=== PATIENT | male | born 1950 | race Caucasian/White ===

== ENCOUNTER → 2021-09-30 | Outpatient (CLI) | payer MEDICARE, OTHER ==
[~2021-09-30] VITALS: Ht 175.3 cm; Wt 88.5 kg
== END ==
LOC: OPSV 07:00
DX: D46.9 Myelodysplastic syndrome, unspecified (principal)
CPT/HCPCS: 36430; J7050; P9016

== ENCOUNTER 2021-10-25 09:47 | Inpatient (IN) | payer MEDICARE, OTHER ==
[~2021-10-25] VITALS: Ht 175.3 cm; Wt 89.4 kg
[2021-10-25 11:06] LABS: HEMOGLOBIN 9.1 gm/dl (14.0-17.5); RED BLOOD COUNT 3.44 M/UL (4.20-5.50); WHITE BLOOD COUNT 6.2 K/UL (4.5-11.0)
[2021-10-25 11:31] LABS: BUN/CREATININE RATIO 18 (0-10)
[2021-10-25] MEDS ORDERED: AUGMENTIN 875-1 EACH PO (14:41)
[2021-10-25] MEDS ORDERED: VIBRAMYCIN100 MG PO (14:41)
[2021-10-26 03:43] LABS: HEMOGLOBIN 8.2 gm/dl (14.0-17.5)
[2021-10-26 03:45] LABS: RED BLOOD COUNT 3.05 M/UL (4.20-5.50)
[2021-10-26 04:49] LABS: BUN/CREATININE RATIO 16 (0-10)
[2021-10-26] MEDS ORDERED: BUPRENORPHIN-N1 EACH SL (12:56)
[2021-10-26] MEDS ORDERED: NEURONTIN300 MG PO (12:57)
[2021-10-26] MEDS ORDERED: OMEPRAZOLE20 M1 PO (14:11)
[2021-10-26] MEDS ORDERED: AUGMENTIN 875-1 EACH PO (15:31)
[2021-10-26] MEDS ORDERED: FERROUS SULFAT325 MG PO (15:37)
== END 2021-10-26 17:00 | disposition home or self-care (01) | DRG 194 ==
LOC: ER1 09:47 → CDU 15:29 → 3 EAST 10-26 11:41
PROVIDERS: Emergency Medicine; ADMIT Internal Medicine
DX: J18.9 Pneumonia, unspecified organism (principal); F11.20 Opioid dependence, uncomplicated; C92.10 Chronic myeloid leukemia, BCR/ABL-positive, not having achieved remission; Z20.822 Contact with and (suspected) exposure to COVID-19; D63.0 Anemia in neoplastic disease; D70.8 Other neutropenia; Z80.42 Family history of malignant neoplasm of prostate; Z80.49 Family history of malignant neoplasm of other genital organs; Z79.899 Other long term (current) drug therapy
CPT/HCPCS: 0240U; 71045; 80053; 82550; 82553; 83540; 83550; 83735; 83874; 83880; 84100; 84484; 85025; 86140; 93005; 94640; 94664; 94760; 96374; 96375; 96376; 99285; C9113; G0378; J0692; J1450; J1650; J3370; J7030; J7070; Q9967

== ENCOUNTER → 2021-11-05 | Outpatient (CLI) | payer MEDICARE, OTHER ==
[~2021-11-05] MED LIST: AUGMENTIN 875-1 EACH PO; BUPRENORPHIN-N1 EACH SL; FERROUS SULFAT325 MG PO; NEURONTIN300 MG PO; OMEPRAZOLE20 M1 PO; VIBRAMYCIN100 MG PO
[2021-11-06 07:27] LABS: HEMOGLOBIN 7.5 gm/dl (14.0-17.5)
== END ==
LOC: LAB 17:06
PROVIDERS: Internal Medicine Hematology & Oncology
DX: D64.9 Anemia, unspecified (principal)
CPT/HCPCS: 36415; 85014; 85018; 86850; 86900; 86901; 86920

== ENCOUNTER → 2021-11-06 | Outpatient (CLI) | payer MEDICARE, OTHER | LOC: OPSV 08:58 | DX: D46.9 Myelodysplastic syndrome, unspecified (principal) | CPT/HCPCS: 36430; P9016 ==

== ENCOUNTER → 2022-01-05 | Outpatient (CLI) | payer MEDICARE, OTHER ==
[~2022-01-05] VITALS: Ht 175.3 cm; Wt 79.8 kg
[~2022-01-05] MED LIST changes: +ACYCLOVIR400 MG PO; +AUGMENTIN 500-500 MG PO; +DIFLUCAN200 MG PO; +LEVOFLOXACIN500 MG PO
== END ==
LOC: OPSV 09:00
DX: D46.9 Myelodysplastic syndrome, unspecified (principal); R53.83 Other fatigue; R06.02 Shortness of breath
CPT/HCPCS: 36430; P9016

== ENCOUNTER 2022-01-23 10:52 | Inpatient (IN) | payer MEDICARE, OTHER ==
[~2022-01-23] VITALS: Ht 175.3 cm; Wt 78.0 kg
[2022-01-23 12:16] LABS: HEMOGLOBIN 7.8 gm/dl (14.0-17.5); RED BLOOD COUNT 2.84 M/UL (4.20-5.50); WHITE BLOOD COUNT 1.7 K/UL (4.5-11.0)
[2022-01-23 12:37] LABS: BUN/CREATININE RATIO 19 (0-10)
[2022-01-23] MEDS ORDERED: GABAPENTIN800 MG PO (16:19)
[2022-01-23] MEDS ORDERED: ONDANSETRON HCL8 MG PO (16:19)
[2022-01-23] MEDS ORDERED: AZACITIDINE100 MG SC (16:24)
[2022-01-24 03:24] LABS: HEMOGLOBIN 7.1 gm/dl (14.0-17.5); RED BLOOD COUNT 2.58 M/UL (4.20-5.50)
[2022-01-24 03:33] LABS: BUN/CREATININE RATIO 18 (0-10)
[2022-01-24 03:46] LABS: WHITE BLOOD COUNT 1.4 K/UL (4.5-11.0)
[2022-01-25 04:17] LABS: HEMOGLOBIN 7.4 gm/dl (14.0-17.5); RED BLOOD COUNT 2.67 M/UL (4.20-5.50)
[2022-01-25 04:33] LABS: WHITE BLOOD COUNT 1.8 K/UL (4.5-11.0)
[2022-01-25 04:52] LABS: BUN/CREATININE RATIO 16 (0-10)
[2022-01-26 06:54] LABS: RED BLOOD COUNT 2.52 M/UL (4.20-5.50)
[2022-01-26 07:12] LABS: BUN/CREATININE RATIO 24 (0-10)
[2022-01-26 07:34] LABS: HEMOGLOBIN 6.9 gm/dl (14.0-17.5)
--- NOTE | 2022-01-26 08:43 | NUR ---
0879- ATTEMPTED TO CALL DR ROA TO NOTIFY HIM OF CRITICAL LABS. NO ANSWER. WILL CONTINUE TO CALL.
--- NOTE | 2022-01-26 13:40 | NUR ---
1340- NOTIFIED DR. ZALDIVAR THAT PATIENTS BLOOD WILL NOT BE READY UNTIL IN THE MORNING.
[2022-01-27 04:49] LABS: RED BLOOD COUNT 2.34 M/UL (4.20-5.50)
[2022-01-27 05:29] LABS: BUN/CREATININE RATIO 25 (0-10)
[2022-01-27 05:42] LABS: HEMOGLOBIN 6.1 gm/dl (14.0-17.5); WHITE BLOOD COUNT 1.5 K/UL (4.5-11.0)
[2022-01-27 16:06] LABS: WHITE BLOOD COUNT 1.5 K/UL (4.5-11.0)
[2022-01-28 06:56] LABS: BUN/CREATININE RATIO 26 (0-10)
[2022-01-28 07:09] LABS: HEMOGLOBIN 7.3 gm/dl (14.0-17.5)
[2022-01-28 07:11] LABS: RED BLOOD COUNT 2.74 M/UL (4.20-5.50); WHITE BLOOD COUNT 1.2 K/UL (4.5-11.0)
[2022-01-29 06:23] LABS: HEMOGLOBIN 8.7 gm/dl (14.0-17.5)
[2022-01-29 06:30] LABS: RED BLOOD COUNT 3.12 M/UL (4.20-5.50)
[2022-01-29 06:50] LABS: BUN/CREATININE RATIO 28 (0-10)
[2022-01-30 05:47] LABS: HEMOGLOBIN 8.2 gm/dl (14.0-17.5); RED BLOOD COUNT 2.92 M/UL (4.20-5.50)
[2022-01-30 06:12] LABS: BUN/CREATININE RATIO 30 (0-10)
[2022-01-31 02:33] LABS: RED BLOOD COUNT 2.85 M/UL (4.20-5.50)
[2022-01-31 02:44] LABS: WHITE BLOOD COUNT 1.3 K/UL (4.5-11.0)
[2022-01-31 02:57] LABS: BUN/CREATININE RATIO 26 (0-10)
[2022-02-01 03:26] LABS: HEMOGLOBIN 8.6 gm/dl (14.0-17.5); RED BLOOD COUNT 3.1 M/UL (4.20-5.50)
[2022-02-01 03:29] LABS: WHITE BLOOD COUNT 1.5 K/UL (4.5-11.0)
[2022-02-01 03:49] LABS: BUN/CREATININE RATIO 27 (0-10)
[2022-02-02 03:16] LABS: HEMOGLOBIN 7.4 gm/dl (14.0-17.5)
[2022-02-02 03:18] LABS: RED BLOOD COUNT 2.65 M/UL (4.20-5.50); WHITE BLOOD COUNT 1.2 K/UL (4.5-11.0)
[2022-02-02 04:20] LABS: BUN/CREATININE RATIO 25 (0-10)
[2022-02-03 04:14] LABS: HEMOGLOBIN 7.5 gm/dl (14.0-17.5); RED BLOOD COUNT 2.66 M/UL (4.20-5.50)
[2022-02-03 04:17] LABS: WHITE BLOOD COUNT 1.4 K/UL (4.5-11.0)
--- NOTE | 2022-02-03 04:49 | NUR ---
NOTIFIED MD OF CRITICAL PLATELETS OF 26 AND CRITICAL WBC OF 1.4. NO NEW ORDERS AT THIS TIME.
[2022-02-03 05:09] LABS: BUN/CREATININE RATIO 27 (0-10)
--- NOTE | 2022-02-03 05:28 | NUR ---
PER PHARMACY HOLDING VANCOMYCIN AT 0600 FOR VANC TROUGH OF 24.8
[2022-02-04 03:05] LABS: HEMOGLOBIN 7.7 gm/dl (14.0-17.5); RED BLOOD COUNT 2.74 M/UL (4.20-5.50); WHITE BLOOD COUNT 1.7 K/UL (4.5-11.0)
[2022-02-04 04:27] LABS: BUN/CREATININE RATIO 21 (0-10)
[2022-02-05 03:22] LABS: HEMOGLOBIN 7.1 gm/dl (14.0-17.5); RED BLOOD COUNT 2.58 M/UL (4.20-5.50)
[2022-02-05 03:49] LABS: BUN/CREATININE RATIO 18 (0-10)
[2022-02-05] MEDS ORDERED: ROXICODONE TAB 55 MG PO (13:55)
[2022-02-05] MEDS ORDERED: LEVOFLOXACIN500 MG PO (13:55)
[2022-02-05] MEDS ORDERED: ACYCLOVIR200 MG PO (13:55)
[2022-02-05] MEDS ORDERED: FLUCONAZOLE100 MG PO ×2 (13:55→14:16)
== END 2022-02-05 15:22 | disposition home or self-care (01) | DRG 853 ==
LOC: ER1 10:52 → CDU 15:54 → M/S 15:54
PROVIDERS: Internal Medicine; Physician Assistant; Physician Assistant Medical; ADMIT Internal Medicine
PROC: 3E03329 Introduction of Other Anti-infective into Peripheral Vein, Percutaneous Approach (ICD-10-PCS; principal; 2022-01-23)
PROC: 0JCK0ZZ Extirpation of Matter from Left Hand Subcutaneous Tissue and Fascia, Open Approach (ICD-10-PCS; 2022-01-25)
PROC: 30233N1 Transfusion of Nonautologous Red Blood Cells into Peripheral Vein, Percutaneous Approach (ICD-10-PCS; 2022-01-27)
DX: A41.02 Sepsis due to Methicillin resistant Staphylococcus aureus (principal); D61.810 Antineoplastic chemotherapy induced pancytopenia; L03.114 Cellulitis of left upper limb; D61.818 Other pancytopenia; N17.9 Acute kidney failure, unspecified; M79.A12 Nontraumatic compartment syndrome of left upper extremity; G40.909 Epilepsy, unspecified, not intractable, without status epilepticus; D46.9 Myelodysplastic syndrome, unspecified; K20.90 Esophagitis, unspecified without bleeding; Z20.822 Contact with and (suspected) exposure to COVID-19; S01.01XA Laceration without foreign body of scalp, initial encounter; D70.9 Neutropenia, unspecified; F19.10 Other psychoactive substance abuse, uncomplicated; R58 Hemorrhage, not elsewhere classified; Z92.21 Personal history of antineoplastic chemotherapy; Z98.890 Other specified postprocedural states; Z79.899 Other long term (current) drug therapy; Z82.49 Family history of ischemic heart disease and other diseases of the circulatory system; Z80.41 Family history of malignant neoplasm of ovary; Z80.42 Family history of malignant neoplasm of prostate; D70.1 Agranulocytosis secondary to cancer chemotherapy
CPT/HCPCS: 36415; 36430; 70450; 73130; 73201; 80048; 80053; 80202; 83605; 83735; 84100; 85025; 85027; 85652; 86140; 86850; 86900; 86901; 86920; 87040; 87070; 87077; 87186; 87205; 90471; 90715; 93005; 96374; 96375; 99285; J1100; J1170; J1442; J2001; J2185; J2270; J2405; J2704; J3010; J3370; J7030; J7050; J7070; J7120; P9037; P9040; Q0177; Q9967; U0002

== ENCOUNTER → 2022-02-10 | Outpatient (CLI) | payer MEDICARE, OTHER ==
[~2022-02-10] MED LIST changes: +ACYCLOVIR200 MG PO; +AZACITIDINE100 MG SC; +FLUCONAZOLE100 MG PO; +GABAPENTIN800 MG PO; +ONDANSETRON HCL8 MG PO; +ROXICODONE TAB 55 MG PO
[2022-02-10 13:48] LABS: HEMOGLOBIN 6.4 gm/dl (14.0-17.5)
== END ==
LOC: LAB 13:12
PROVIDERS: Internal Medicine Hematology & Oncology
DX: D46.9 Myelodysplastic syndrome, unspecified (principal)
CPT/HCPCS: 36415; 85014; 85018; 86850; 86900; 86901; 86920; P9016

== ENCOUNTER → 2022-02-11 | Outpatient (CLI) | payer MEDICARE, OTHER ==
[~2022-02-11] VITALS: Ht 175.3 cm; Wt 88.0 kg
== END ==
LOC: OPSV 08:00
DX: D64.9 Anemia, unspecified (principal)
CPT/HCPCS: 36430; 96375; J1940; J7050; P9016

== ENCOUNTER → 2022-03-11 | Emergency (ER) | payer MEDICARE, OTHER ==
[2022-03-11 14:31] LABS: HEMOGLOBIN 11.3 gm/dl (14.0-17.5); RED BLOOD COUNT 3.8 M/UL (4.20-5.50); WHITE BLOOD COUNT 4.5 K/UL (4.5-11.0)
[2022-03-11 14:50] LABS: BUN/CREATININE RATIO 25 (0-10)
== END | disposition home or self-care (01) ==
LOC: ER1 13:32
PROVIDERS: Physician Assistant
DX: M25.551 Pain in right hip (principal); M25.552 Pain in left hip
CPT/HCPCS: 72170; 80048; 85025; 99283; J1885

== ENCOUNTER 2022-04-26 11:41 | Emergency (ER) | payer MEDICARE, OTHER ==
[2022-04-26 12:45] LABS: HEMOGLOBIN 10.6 gm/dl (14.0-17.5); RED BLOOD COUNT 3.52 M/UL (4.20-5.50)
[2022-04-26 12:50] LABS: WHITE BLOOD COUNT 1.2 K/UL (4.5-11.0)
[2022-04-26 13:08] LABS: BUN/CREATININE RATIO 17 (0-10)
[2022-04-26] MEDS ORDERED: CYCLOBENZAPRINE5 MG PO (15:51)
[2022-04-26] MEDS ORDERED: MELOXICAM15 MG PO (15:51)
== END 2022-04-26 16:34 | disposition home or self-care (01) ==
LOC: ER1 11:41
PROVIDERS: Physician Assistant
DX: M54.50 Low back pain, unspecified (principal); R10.9 Unspecified abdominal pain; R91.1 Solitary pulmonary nodule; D46.9 Myelodysplastic syndrome, unspecified; Z87.442 Personal history of urinary calculi
CPT/HCPCS: 72131; 80053; 81001; 85025; 96374; 99284; J1885